=== PATIENT | female | born 1995 | race Caucasian/White ===

== ENCOUNTER 2017-07-06 10:04 | Emergency (ER) | payer OTHER ==
[~2017-07-06] VITALS: Ht 149.9 cm; Wt 80.0 kg
[~2017-07-06 10:04] MED LIST: IBUP800 PO; PRENTAB72 PO; VITA400C28 PO
[2017-07-06 10:06] VITALS: BP 141/82; PULSE 111; RESP 20; TEMP 98.2; O2SAT 99
--- NOTE | 2017-07-06 11:37 | PD ---
HPI Chief Complaint: Related Problem Time Seen by Provider: 11:33 Travel History International Travel<30 days: No Contact w/Intl Traveler<30days: No Traveled to known affect area: No History of Present Illness HPI The patient was seen and examined in the presence of the nurse. This patient reports that she is about 12 weeks using menstrual dates. She follows with the health Department for care. She is not had an ultrasound this . She woke up this morning with pelvic cramping. Not severe pain but mild cramping. No vaginal bleeding or discharge or fever. Duration 3 hours. No alleviating factors. PFSH Past Medical History Medical History: Denies Significant Hx Diminished Hearing: No ?: LMP: 04/25/17 : 2 Para: 1 Past Surgical History Tonsillectomy: Yes Social History Alcohol Use: No Tobacco Use: Yes (<1/5 PPD) Substance Use: No Allergies-Medications (Allergen,Severity, Reaction): Coded Allergies: No Known Allergies (Unverified , 07/06/17) Reported Meds & Prescriptions Reported Meds & Active Scripts Active No Active Prescriptions or Reported Medications Review of Systems General / Constitutional: No: Fever Eyes: No: Visual changes HENT: No: Headaches Cardiovascular: No: Chest Pain or Discomfort Respiratory: No: Shortness of Breath Gastrointestinal: No: Abdominal Pain Genitourinary: Positive: Pelvic Pain, No: Dysuria Musculoskeletal: No: Pain Skin: No Rash Neurologic: No: Weakness Psychiatric: No: Depression Endocrine: No: Polydipsia Hematologic/Lymphatic: No: Easy Bruising Physical Exam Narrative GENERAL: Well-nourished, well-developed patient in no apparent distress. SKIN: Focused skin assessment reveals no rash and nodules. Skin is Warm and dry. HEAD: Atraumatic. Normocephalic. EYES: Pupils equal and round. No scleral icterus. No injection or drainage. ENT: No nasal bleeding or discharge. Mucous membranes pink and moist. NECK: Trachea midline. No JVD. CARDIOVASCULAR: Regular rate and rhythm. No murmur appreciated. RESPIRATORY: No accessory muscle use. Clear to auscultation. Breath sounds equal bilaterally. GASTROINTESTINAL: Abdomen soft, non-tender, nondistended. Hepatic and splenic margins not palpable. MUSCULOSKELETAL: No obvious deformities. No clubbing. No cyanosis. No edema. NEUROLOGICAL: Awake and alert. No obvious cranial nerve deficits. Motor grossly within normal limits. Normal speech. PSYCHIATRIC: Appropriate mood and affect; insight and judgment normal. Pelvic: Cervix is closed with no motion tenderness. No blood in the vault or adnexal tenderness Data Data Last Documented VS Vital Signs Date Time Temp Pulse Resp B/P Pulse Ox O2 Delivery O2 Flow Rate FiO2 07/06/17 10:06 98.2 111 20 141/82 99 Room Air MDM Medical Decision Making Medical Screen Exam Complete: Yes Emergency Medical Condition: Yes Medical Record Reviewed: Yes Differential Diagnosis Ectopic , miscarriage, nonspecific cramping Narrative Course I have reviewed the patient's electronic medical record. I did a bedside transabdominal ultrasound to rule out ectopic Ultrasound reveals intrauterine fetus with good heartbeat and movement. Ectopic is ruled out There is no miscarriage Follow-up with OB Diagnosis Primary Impression: Pelvic pain affecting in first trimester, antepartum Additional Instructions: Follow-up with OB physician Med/Other Pt SpecificInfo: Other Scripts No Active Prescriptions or Reported Meds Disposition: DISCHARGE HOME Condition: Stable Anant Benjamin MD Jul 06, 2017 11:37
== END 2017-07-06 12:23 | disposition home or self-care (01) ==
LOC: NEPD 10:04
DX: O26.891 Other specified pregnancy related conditions, first trimester (principal); R10.2 Pelvic and perineal pain; O99.331 Smoking (tobacco) complicating pregnancy, first trimester; Z3A.12 12 weeks gestation of pregnancy
CPT/HCPCS: 99282